=== PATIENT | female | born 1995 | race Caucasian/White ===

== ENCOUNTER 2019-05-26 20:52 | Inpatient (IN) ==
[2019-05-26] MEDS ORDERED: Metoclopramide 10 MG/2 ML VIAL IVP PRN (20:59)
[2019-05-26] MEDS ORDERED: Famotidine 20 MG/2 ML VIAL IVP PRN (20:59)
[2019-05-26] MEDS ORDERED: Naloxone 0.4 MG/ML INJ IVP PRN (20:59)
[2019-05-26] MEDS ORDERED: Oxytocin 20 units/ LR 1000 mL 20 UNIT/1,000 ML BAG IVC SCH (21:00)
[2019-05-26] MEDS ORDERED: Ringers Solution, Lactated 1,000 ML IVC SCH (21:00)
[2019-05-26 21:44] LABS: Hematocrit 33.7 % (35.3-44.9); Mean Corpuscular HGB Conc 32.6 g/dL (31.6-35.5); Mean Corpuscular Hemoglobin 27.8 pg (28.0-33.3); Mean Corpuscular Volume 85.3 fL (83.0-100.0); Platelet Count 319 K/mcL (140-400); Red Blood Count 3.95 M/mcL (3.82-4.97); Red Cell Distribution Width 13.2 % (11.5-14.5); Segmented Neutrophils % 63.1 %; White Blood Count 9.3 K/mcL (4.3-11.1)
[2019-05-26 21:45] LABS: Basophils % 0.3 %; Eosinophils # 0.3 K/mcL (0.0-0.6); Eosinophils % 2.8 %; Immature Granulocytes % 0.9 % (0-4); Lymphocytes # 2.4 K/mcL (0.6-4.6); Lymphocytes % 25.4 %; Monocytes # 0.7 K/mcL (0.0-1.3); Monocytes % 7.5 %; Neutrophils # 5.9 K/mcL (1.6-8.9)
[2019-05-26 21:54] LABS: Amphetamine Screen,Urine Negative ng/mL (Cutoff=1000); Barbiturate Screen,Urine Negative ng/mL (Cutoff=200); Benzodiazepines Screen,Urine Negative ng/mL (Cutoff=200); Cannabinoid Screen,Urine Negative ng/mL (Cutoff = 50); Cocaine Screen,Urine Negative ng/mL (Cutoff= 300); Opiate Screen,Urine Negative ng/mL (Cutoff=300); Phencyclidine Screen,Urine Negative ng/mL (Cutoff=25)
--- NOTE | 2019-05-26 22:09 | Anesthesia Evaluation PreOp ---
Date of Encounter: 05/26/19 Time of Encounter: 21:45 - Past History Planned Operation: labor epidural Cardiac History: Denies any Significant Hx Pulmonary History: Former smoker (quit 03/17. smoked for 7 years prior to quitting.denies disease.) RADIO JOURNALIST History: Denies Any Significant HX Other Medical History: GERD (heartburn with ) Anesthesia History: No Prior Anesthetic Complications, Past Anesthesia (left knee ligament repair. GA with nerve block, no problems no FHAP.) : Yes Alcohol Use: none Drug use: none Medications and Allergies Allergy/AdvReac Type Severity Reaction Status Date / Time No Known Allergies Allergy Verified 05/26/19 22:06 - Meds/Allergy Pre-op Review Medications Reviewed: Yes Allergies Reviewed: Yes Beta Blockers on Current Med List: No Anesthesia Results - Labs 05/26/19 21:30 Anesthesia Exam 119/70, 115, 20. FHTs 130s. Height: 1.65m Weight: 96kg NPO (# of Hours): 2 Pain Scale: 0 Pain Scale Used: Numeric (1 - 10) - HEENT Pupil (Motor): Pupils equal Mallampati: II Teeth: Normal Oral Opening: Greater than 3 - RADIO JOURNALIST LOC: Oriented RADIO JOURNALIST Motor: Normal RUE, Normal LUE, Normal RLE, Normal LLE, Normal Face RADIO JOURNALIST Sensory: Normal: RUE, LUE, RLE, LLE, Face - Cardiac Rhythm: Regular - Pulmonary Breath Sounds: bilateral Clear Respiratory Effort: Symmetrical Anesthesia Assess/Plan ASA Score: 2 Level of consciousness: Cooperative, Oriented, Tranquil Anesthetic Plan: Epidural Monitoring Plan: Standard Monitors
[2019-05-26] MEDS ORDERED: Epidural Premix (fent/bupiv) 110 ML EP SCH (22:15)
[2019-05-26] MEDS ORDERED: miSOPROStol 25 MCG TABLET PO PRN (22:33)
--- NOTE | 2019-05-26 22:42 | OB/GYN History & Physical ---
Date of Encounter: 05/26/19 Time of Encounter: 22:38 Assessment and Plan (1) 39 weeks gestation of Current visit: Yes Status: Acute Admit for elective IOL. Cook catheter placed using sterile technique. Balloons inflated with sterile water, 60ml uterine and 40ml vaginal. Pt tolerated well. Plan for cytotec 50mcg PO Will give benadryl to help pt sleep tonight. Pt may have epidural when desired. Anticipate . POC per Dr. Ramos who is managing this patient History of Present Illness Chief complaint: IOL HPI: Ms. Ponce is a 24 year old female presenting at 39w3d for IOL. She denies complaints tonight. This has been complicated by mildly dilated renal pelvis in the fetus. No other complications. B positive Rubella and varicella immune Hep B, Hep C, HIV and RPR negative GBS negative Glucola WNL Past Med Surg Social Fam HX - Past Medical History Additional medical history: heartburn - Past Surgical History Surgical History: non-contributory Additional surgical history: left knee surgery - Social History Smoking Status: Former smoker Alcohol use: none Drug use: none - Family History Mother Living Status: Still Living Hx Family Cardiac Disorders: No Hx Family Respiratory Disorders: No Hx Family Cancer: No Hx Family GI Disorders: No Hx Family Genitourinary Disorders: No Hx Family Endocrine Disorder: No Hx Family Musculoskeletal Disorders: No Hx Family Neuromuscular Disorders: No Hx Family Neurologic Disorders: No Hx Family HEENT Disorders: No Hx Family Autoimmune Disorders: No Hx Family Reproductive Disorders: No Hx Family Psychosocial Disorders: No Hx Family Medical Disorders: No (no history reported) Obstetrical History - Pregnancies : 1 Medications and Allergies Famotidine [Pepcid] 20 mg PO BID 05/26/19 [History] Vits96/Iron Fum/Folic [ Tablet] 1 each PO DAILY 05/26/19 [Hi story] Allergy/AdvReac Type Severity Reaction Status Date / Time No Known Allergies Allergy Verified 05/26/19 22:06 Review of System OB All systems PM: reviewed and no additional remarkable complaints except as stated Exam - Constitutional Constitutional: well developed, well nourished, no acute distress - HEENT HEENT: Mucus Membranes Moist - Lungs Respiratory exam: CTAB - Cardiovascular Cardiovascular exam: RRR - Abdomen Abdomen: Present: gravid, non tender - Extremities Extremities exam: normal inspection - Vagina Vagina: Present: normal moisture - Cervix Dilation: 1 Effacement: 80 Station: -2 - Anus/Rectum Anus/Rectum: Present: normal perianal skin Results Result Diagrams: 05/26/19 21:30 Abnormal lab results Hgb 11.0 g/dL (11.5-15.4) L 05/26/19 21:30 Hct 33.7 % (35.3-44.9) L 05/26/19 21: MCH 27.8 pg (28.0-33.3) L 05/26/19 21:30 MPV 9.0 fL (9.4-12.4) L 05/26/19 21:30 All other labs normal. - VTE Reasons for not Prescribing Prophylaxis: Treatment not Indicated - Low risk for VTE
[2019-05-27] MEDS: *HR* Nalbuphine 10 MG/ML AMPUL IVP PRN ×2 (01:33→06:43)
[2019-05-27] MEDS ORDERED: *HR* FentaNYL (PF) 100 MCG/2 ML VIAL EP ONE (07:45)
[2019-05-27] MEDS ORDERED: Ropivacaine/PF 0.2% 20 ML VIAL EP ONE (07:45)
[2019-05-27] MEDS ORDERED: Epidural Premix (fent/bupiv) 110 ML EP SCH (07:45)
--- NOTE | 2019-05-27 08:31 | Anesthesia Procedures ---
Date of Encounter: 05/27/19 Time of Encounter: 08:29 Procedures: Anesthesia - Epidural/Spinal Patient ID/Chart reviewed: Yes Patient examined: Yes OB Eval: Gestational age: 39 OB Eval: : 1 OB Eval: Hx Para: 0 OB Eval: Dilated at (cm): 6 OB Eval: Contractions: Non-stressed pattern Consent Obtained: Yes Supplemental Oxygen: None/Room Air Site Prep: Aseptic Technique, Sterile prep and drape, 0.5% Chlorhexidine/Alcohol Patient position: upright Local Anesthetic: Lidocaine 1% Amount of Local Anesthetic used: 3 Touhy Needle Gauge: 18 Touhy Needle Depth (cm): 8 Catheter Depth at Skin (cm): 15 Test Dose (1.5% Lido + Epi): Volume given (mls): 3 Test Dose Result: Negative Loading Dose: Fentanyl (mcg): 100 Loading Dose: Other: ropivacaine 0.2% 5 Loading Dose Administered: Thru Touhy Needle Infusion Med: 0.125% Bupivacaine w/ 2 mcg/ml Fentanyl Infusion Rate (mls/hr): 15 (pcea 5cc q30") Catheter Secured in Place: Tegaderm Interspace Used: L2-L3 Loss of Resistance (RAUDEL): Yes Blood: No CSF: No Paresthesia: No Procedure: aseptic, tolerated well, VSS, effective Vitals + FHT's: 108/78 100 16 fht 132
[2019-05-27] MEDS ORDERED: Famotidine 20 MG TABLET PO SCH (09:00)
--- NOTE | 2019-05-27 10:10 | OB Labor Progress Note ---
Date of Encounter: 05/27/19 Time of Encounter: 10:08 Labor Progress Note - Subjective Subjective: Patient resting comfortably with epidural in place. - Vital Signs Vital Signs: WNL - Cervix Cervix: 6/80/0 - Heart Tones Heart Tones: FHR 130 bpm, moderate variability, +15x15 accels, no decels. - [place]: 3-4 min - Interventions Interventions: SVE AROM for small amount of clear fluid. - Plan Physician notified: Yes Physician notified details: Dr. Ramos aware of SVE and AROM Plan: Continue Pitocin and increase as necessary Anticipate
[2019-05-27] MEDS ORDERED: Methylergonovine 0.2 MG/ML AMPUL IM ONE (12:21)
--- NOTE | 2019-05-27 20:45 | Event Note ---
Date of Encounter: 05/27/19 Time of Encounter: 20:43 At bedside to evaluate patient for position. OP appreciated. SVE: with head well applied. Patient is not yet complete, therefore, we performed the Walcher's maneuver. Will reassess patient after 10minutes of this position and use of the peanut ball. MD SIS
[2019-05-27] MEDS ORDERED: Lidocaine -MPF 1% 2 ML VIAL ONE (22:36)
--- NOTE | 2019-05-27 22:57 | OB/GYN Procedure Note ---
Delivery - Delivery Date: 05/27/19 Provider: Jeanne Ramos Intrapartum events: none Delivery induction: AROM, oxytocin, lala, misoprostol Delivery monitor: external FHT, external uterine, internal uterine Anesthesia: epidural Quantitated Blood Loss: 300 - (s) Infant A Delivery Date: 05/27/19 Infant Delivery Time: 22:27 Presentation: vertex Position: OA Route of delivery: Gender: Male Viability: Viable Pounds: 7 Ounces: 12 at 1 minute: 9 at 5 mins: 9 Shoulder Dystocia: not encountered Specimens collected: cord blood Placenta: spontaneous - Repair Episiotomy: none Laceration Description: Periurethral, Labial, Superficial - Complications Delivery complications: none - Disposition Mom disposition: stable in LDR disposition: stable in LDR - Comments Comments: Called to see patient at bedside, found to be C/C/+1 with urge to push. Patient was prepped and draped in the usual sterile fashion. We adequate maternal effort, we delivered the in the direct OA position over an intact perineum. Restitution with rotation to the HIRA position. Baby boy was vigorous and crying. Cord was clamped and cut. Cord gases were not col lected. Cord blood was collected. Placenta was then subsequently delivered with delicate but appropriate traction. Delivered completely intact. Patient was warm to touch, concern for chorioamnionitis. Placenta will be sent for pathology. IV Pitocin was continued and IV methergine was initiated with concern for uterine atony. With aggressive bimanual, her uterus was evacuated of clotted bl ood and it began to appropriately clamp down. Upon inspection of the perineum, bilateral superficial labial lacerations were appreciated, found to be hemostatic, and not repaired. Similarly, we examined the perineum, and found superficial laceration (vaginal) that was with a subtle ooze. We repaired this in the usual running locked fashion using 4-0 vicryl. Hemostasis was appreciated. All counts were correct x3. EBL: 300mL Repair: superficial perineal laceration Apgars: 9/9 Cord blood collected Placenta sent to pathology with concern for chorioamnionitis. Patient was started on triple antibiotic therapy with concern for an intrauterine infection, will DC therapy after 24 hours. MD SIS
[2019-05-27] MEDS ORDERED: Gentamicin 360 MG in 0.9 % Sodium Chloride 100 ML IVPB SCH (23:00)
[2019-05-28] MEDS ORDERED: Clindamycin 900 MG/50 ML 900 MG/50 ML IV.SOLN IVPB SCH
[2019-05-28] MEDS ORDERED: Ampicillin 2 GM in 0.9 % Sodium Chloride Mini Bag 100 ML IVPB SCH
[2019-05-28] MEDS ORDERED: Acetaminophen 325 MG TABLET PO PRN (02:15)
[2019-05-28] MEDS ORDERED: Benzocaine/Menthol 56 GM AEROSOL SPRAY TP PRN (02:15)
[2019-05-28] MEDS ORDERED: Lanolin 7 G OINT...G. TP PRN (02:15)
[2019-05-28] MEDS ORDERED: Measles/Mumps/Rubella Vacc 0.5 ML VIAL SQ PRN (02:15)
[2019-05-28] MEDS ORDERED: Oxytocin 20 units/ LR 1000 mL 20 UNIT/1,000 ML BAG IVC SCH (02:15)
[2019-05-28] MEDS: Ibuprofen 600 MG TABLET PO PRN ×3 (04:26→20:21)
[2019-05-28] MEDS: Prenatal Vit/FA 1 EACH TABLET PO SCH (07:39)
--- NOTE | 2019-05-28 15:56 | OB/GYN Progress Note ---
Date of Encounter: 05/28/19 Time of Encounter: 15:55 - Assessment and Plan (1) Vaginal delivery Current Visit: Yes Status: Acute Stable PPD#1 Continue current management anticipate discharge tomorrow Subjective - Subjective Patient reports: appetite normal, voiding normally, pain well controlled : doing well Objective - Latest Vital Signs Latest vital signs: Vital Signs Temp Pulse Resp BP Pulse Ox 05/28/19 15:46 97.6 F 70 16 112/75 05/28/19 08:27 98.4 F 88 16 121/79 05/28/19 04:00 98.7 F 96 16 104/65 97 05/28/19 03:00 98.3 F 89 16 125/74 97 05/28/19 02:00 98.9 F 95 14 108/76 98 Intake and Output 05/27/19 05/28/19 05/28/19 23:59 07:59 15:59 Intake Total 470 / 470 Output Total 1150 / 1790 640 / 1790 Balance -1150 / -1320 -170 / -1320 Intake: Oral 470 / 470 Output: Urine 1150 / 1790 640 / 1790 Other: Meal Lunch Percent of Meal Consumed 50% - Exam Lungs: bilateral: normal Chest: Normal S1, Normal S2 Extremities: Present: normal Abdomen: Present: soft Uterus: Present: firm Uterus Position: At Umbilicus
[2019-05-29 08:06] VITALS: BP 114/79
[2019-05-29] MEDS: Prenatal Vit/FA 1 EACH TABLET PO SCH (08:22)
--- NOTE | 2019-05-29 09:38 | Discharge Summary ---
Date of Encounter: 05/29/19 Time of Encounter: 09:35 - Discharge Diagnosis (1) Vaginal delivery Priority: Primary Status: Acute Comments: Feeling well Tolerating regular diet Pain well-controlled with by mouth pain meds Ambulating independently Voiding independently Lochia light Passing flatus, no BM yet Vital signs stable Discharge home today - Discharge Medications Prescriptions: New Acetaminophen [Tylenol] 650 mg PO Q6HR PRN tablet PRN Reason: Mild Pain Ibuprofen [Motrin] 600 mg PO Q6HR PRN #30 tablet PRN Reason: Cramping Benzocaine/Menthol [place] [Dermoplast [place]] 1 appl TP QID PRN aerosol PRN Reason: See Comments Docusate [Colace] 100 mg PO BID #30 capsule Lanolin [Lansinoh] 1 appl TP TID PRN oint...g. PRN Reason: Sore Nipples Continued Vits96/Iron Fum/Folic [ Tablet] 1 each PO DAILY Discontinued Famotidine [Pepcid] 20 mg PO BID Home Medications: Vits96/Iron Fum/Folic [ Tablet] 1 each PO DAILY 05/26/19 [History] Acetaminophen [Tylenol] 650 mg PO Q6HR PRN tablet 05/29/19 [Rx] Benzocaine/Menthol [place] [Dermoplast [place]] 1 appl TP QID PRN aerosol 05/29/19 [Rx] Docusate [Colace] 100 mg PO BID #30 capsule 05/29/19 [Rx] Ibuprofen [Motrin] 600 mg PO Q6HR PRN #30 tablet 05/29/19 [Rx] Lanolin [Lansinoh] 1 appl TP TID PRN oint...g. 05/29/19 [Rx] Allergies/Adverse Reactions: Allergy/AdvReac Type Severity Reaction Status Date / Time No Known Allergies Allergy Verified 05/26/19 22:06 Data Procedures and tests throughout hospitalization: Laboratory Tests 05/26/19 05/26/19 21:30 21:30 WBC 9.3 RBC 3.95 Hgb 11.0 L Hct 33.7 L MCV 85.3 MCH 27.8 L MCHC 32.6 RDW 13.2 Plt Count 319 MPV 9.0 L Immature Gran % 0.9 Seg Neutrophils % 63.1 Lymphocytes % 25.4 Monocytes % 7.5 Eosinophils % 2.8 Basophils % 0.3 Neutrophils # 5.9 Lymphocytes # 2.4 Monocytes # 0.7 Eosinophils # 0.3 Basophils # 0.0 Urine Opiates Screen Negative Ur Buprenorphine Scrn Negative Ur Barbiturates Screen Negative Ur Phencyclidine Scrn Negative Ur Amphetamines Screen Negative U Benzodiazepines Scrn Negative Urine Cocaine Screen Negative U Marijuana (THC) Screen Negative Ur Drug Screen Interp See Below Date of admission: 05/26/19 20:52 Primary care physician: Renato Cates MD Consults: 05/28/19 02:15 Consult to Project Geologist [CONS] Routine Comment: Vaginal delivery, consult needed Discharging clinician: Jeanne Robles Anticipated date of discharge: 05/29/19 - Patient Status Disposition: Home, Self-Care Condition: Good Functional capacity at discharge: independent ambulation Overall status at discharge: patient is progressing back to baseline - Discharge Instructions Follow Up With: Renato Cates MD [Primary Care Provider] - Jeanne Ramos MD [Partnered Physician] - - Diet and Activity Activity: increase activity as tolerated Diet: regular diet Hospital Course Reason for admission: IUP at term Delivery: Episiotomy: none Laceration: other Other procedures: none complications: none Discharge diagnosis: IUP at term delivered baby: male Time Attestation: Total time spent providing and/or coordinating discharge services: Time Spent: Less than 30 minutes Exam - Constitutional Vitals: Temp Pulse Resp BP Pulse Ox 97.6 F 61 20 114/79 100 05/29/19 08:05 05/29/19 08:05 05/29/19 08:05 05/29/19 08:05 05/29/19 08:05 General appearance IM: A&O X 3, pleasant, no acute distress, answers questions appropriately - Respiratory Respiratory exam: Present: CTAB - Cardiovascular Cardiovascular exam IM: Present: RRR, +S1, +S2 - GI/Abdominal GI/Abdominal exam IM: normal bowel sounds, no peritoneal signs - Rectal Rectal exam: deferred - Uterine Tone: Firm Uterus Position: 2 Fingers Below Umbilicus, Midline - Extremities Exam Extremities exam IM: Present: full ROM, normal inspection, radial pulses palpable and symmetrical - Neurological Exam Neurological exam: alert, CN II-XII intact, normal gait, oriented X3, reflexes normal, no focal deficits, strengths equal and symetr throughout - Psychiatric Additional comments: Signs and symptoms of depression discussed with patient and family and both verbalized understanding of when to seek help
[2019-05-29 12:44] LABS: Bilirubin,Urine Negative (Negative); Blood,Urine Large (Negative); Clarity,Urine Cloudy (Clear); Color,Urine Yellow (Yellow); Glucose,Urine (UA) Normal (Normal); Ketones,Urine Negative (Negative); Leukocyte Esterase,Urine Moderate (Negative); Nitrite,Urine Negative (Negative); PH,Urine 6.5 pH Units (5.0-8.0); Protein,Urine Negative (Neg-Trace); Urobilinogen,Urine Normal (Normal)
[2019-05-29 12:48] LABS: Bacteria,Urine None Seen per hpf (None-Few); Hyaline Casts,Urine None Seen per lpf (None-Few); RBC,Urine TNTC per hpf (0-3); Squamous Epithelial Cell,Urine Many per lpf (None-Few); WBC,Urine 30-50 per hpf (0-3)
== END 2019-05-29 15:23 | disposition home or self-care (01) | DRG 807 ==
LOC: 1NENULAB 20:52 → 1NENUOBS 05-28 02:12
PROVIDERS: ADMIT Student in an Organized Health Care Education/Training Program; ATTEND Student in an Organized Health Care Education/Training Program